=== PATIENT | female | born 1985 | race Caucasian/White ===

== ENCOUNTER 2021-04-30 12:20 | Emergency (ER) | payer OTHER ==
[2021-04-30 13:29] LABS: HEMOGLOBIN 15.5 gm/dl (12.3-15.3); RED BLOOD COUNT 4.92 M/UL (4.00-5.10); WHITE BLOOD COUNT 10.8 K/UL (4.5-11.0)
[2021-04-30 13:56] LABS: BUN/CREATININE RATIO 14 (0-10)
== END 2021-04-30 17:07 | disposition home or self-care (01) ==
LOC: ER1 12:20
PROVIDERS: Physician Assistant
DX: N83.8 Other noninflammatory disorders of ovary, fallopian tube and broad ligament (principal); R19.7 Diarrhea, unspecified; Z90.49 Acquired absence of other specified parts of digestive tract; F17.200 Nicotine dependence, unspecified, uncomplicated
CPT/HCPCS: 80053; 81001; 84703; 85025; 96374; 96375; 99284; J2270; J2405; J7030; Q9967

== ENCOUNTER 2021-05-01 02:45 | Emergency (ER) | payer OTHER ==
[2021-05-02] MEDS ORDERED: PERCOCET 5/325 T1 EA PO (19:42)
== END 2021-05-01 03:39 | disposition home or self-care (01) ==
LOC: ER1 02:45
DX: N83.201 Unspecified ovarian cyst, right side (principal); F17.210 Nicotine dependence, cigarettes, uncomplicated; Z90.49 Acquired absence of other specified parts of digestive tract
CPT/HCPCS: 99283

== ENCOUNTER 2021-05-02 14:54 | Emergency (ER) | payer OTHER ==
[2021-05-02 16:37] LABS: RED BLOOD COUNT 5.04 M/UL (4.00-5.10)
[2021-05-02 16:41] LABS: WHITE BLOOD COUNT 16.3 K/UL (4.5-11.0)
[2021-05-02 16:54] LABS: BUN/CREATININE RATIO 9 (0-10)
[2021-05-02] MEDS ORDERED: PERCOCET 5/325 T1 EA PO (19:42)
[2021-05-04 12:09] LABS: CEA 3.4 ng/mL (0.0-4.7)
== END 2021-05-02 19:50 | disposition home or self-care (01) ==
LOC: ER1 14:54
PROVIDERS: Family Medicine; Physician Assistant
DX: N83.9 Noninflammatory disorder of ovary, fallopian tube and broad ligament, unspecified (principal); F17.200 Nicotine dependence, unspecified, uncomplicated; Z90.49 Acquired absence of other specified parts of digestive tract
CPT/HCPCS: 36415; 76830; 80053; 81001; 82105; 82378; 83615; 83690; 84703; 85025; 86301; 86304; 86336; 96374; 96375; 99284; J2270; J2405